=== PATIENT | male | born 1985 | race Caucasian/White ===

== ENCOUNTER 2023-06-06 12:20 | Inpatient (IN) | payer OTHER ==
[2023-06-06 14:38] VITALS: BMI 28.3
[2023-06-06] MEDS ORDERED: LORazepam 2 MG/ML SDV VIAL IM ONE (16:50)
[2023-06-06] MEDS ORDERED: guaiFENesin 600 MG TABLET.ER (FP) PO PRN (16:53)
[2023-06-06] MEDS ORDERED: MAGNESIUM HYDROX 2400MG/30ML ORAL SUSPENSION 30 ML CUP PO PRN (16:53)
[2023-06-06] MEDS ORDERED: BENZOCAINE/MENTHOL (CHLORASEPTIC ) LOZENGE MM PRN (16:53)
[2023-06-06] MEDS ORDERED: DICYCLOMINE HCL 10 MG CAPSULE PO PRN (16:53)
[2023-06-06] MEDS ORDERED: LOPERAMIDE HCL 2 MG CAPSULE PO PRN (16:53)
[2023-06-06] MEDS ORDERED: NALOXONE HCL (KLOXXADO) 8 MG SPRAY NS PRN (16:53)
[2023-06-06] MEDS ORDERED: ACETAMINOPHEN 325 MG TABLET (FP) PO PRN (16:53)
[2023-06-06] MEDS ORDERED: POLYETHYLENE GLYCOL (HEALTHYLAX) 3350 17 GM PACKET PO PRN (16:53)
[2023-06-06] MEDS ORDERED: MAG HYDROX/AL HYDROX/SIMETH 30 ML UNIT-DOSE CUP PO PRN (16:53)
[2023-06-06] MEDS ORDERED: BENZONATATE 200 MG CAPSULE PO PRN (16:53)
[2023-06-06] MEDS ORDERED: IBUPROFEN 400 MG TABLET (FP) PO PRN (16:53)
[2023-06-06] MEDS ORDERED: NICOTINE POLACRILEX 2 MG GUM BUC PRN (16:53)
[2023-06-06] MEDS ORDERED: IBUPROFEN 600 MG TABLET (FP) PO PRN (16:53)
[2023-06-06] MEDS ORDERED: NALOXONE HCL 0.4 MG/ML VIAL IM PRN (16:53)
[2023-06-06] MEDS ORDERED: ONDANSETRON *ODT* 4 MG TABLET SL PRN (16:53)
[2023-06-06] MEDS ORDERED: BISMUTH SUBSALICYLATE 524 MG/30 ML PO PRN (16:53)
[2023-06-06] MEDS: hydrOXYzine PAMOATE 25 MG CAPSULE (FP) PO PRN (18:50)
[2023-06-06] MEDS: THIAMINE HCL 100 MG TABLET (FP) PO SCH (22:07)
[2023-06-06] MEDS: METHOCARBAMOL 500 MG TABLET PO PRN (22:07)
[2023-06-06] MEDS: MELATONIN 5 MG TABLETS PO SCH (22:07)
[2023-06-06] MEDS: LORazepam 2 MG TABLET PO SCH (22:07)
[2023-06-07] MEDS: LORazepam 2 MG TABLET PO SCH ×4 (05:20→22:39)
[2023-06-07] MEDS: hydrOXYzine PAMOATE 25 MG CAPSULE (FP) PO PRN ×2 (05:22→19:01)
[2023-06-07] MEDS ORDERED: methaDONE HCL 10 MG TABLET PO SCH (10:00)
[2023-06-07] MEDS: NICOTINE 14 MG/24 HOURS TOPICAL PATCH TD SCH (10:27)
[2023-06-07] MEDS: PRENATAL VITAMINS W/ FOLIC ACID TABLET (FP) PO SCH (10:27)
[2023-06-07] MEDS: LORazepam 1 MG TABLET PO PRN ×2 (13:57→20:20)
[2023-06-07] MEDS: THIAMINE HCL 100 MG TABLET (FP) PO SCH (22:39)
[2023-06-07] MEDS: MELATONIN 5 MG TABLETS PO SCH (22:39)
[2023-06-07] MEDS: busPIRone HCL 5 MG TABLET PO SCH (22:39)
[2023-06-08] MEDS: busPIRone HCL 5 MG TABLET PO SCH ×3 (05:18→22:03)
[2023-06-08] MEDS: LORazepam 1 MG TABLET PO SCH ×4 (05:19→22:04)
[2023-06-08] MEDS: DULoxetine HCL 20 MG CAPSULE.DR PO SCH (10:00)
[2023-06-08] MEDS: PRENATAL VITAMINS W/ FOLIC ACID TABLET (FP) PO SCH (10:01)
[2023-06-08] MEDS: NICOTINE 14 MG/24 HOURS TOPICAL PATCH TD SCH (10:02)
[2023-06-08] MEDS: hydrOXYzine PAMOATE 25 MG CAPSULE (FP) PO PRN (14:09)
[2023-06-08] MEDS: LORazepam 1 MG TABLET PO PRN (14:09)
[2023-06-08] MEDS: THIAMINE HCL 100 MG TABLET (FP) PO SCH (22:03)
[2023-06-08] MEDS: MELATONIN 5 MG TABLETS PO SCH (22:03)
[2023-06-09] MEDS: LORazepam 0.5 MG TABLET PO SCH ×4 (05:36→23:12)
[2023-06-09] MEDS: busPIRone HCL 5 MG TABLET PO SCH ×3 (05:36→22:08)
[2023-06-09] MEDS: NICOTINE 14 MG/24 HOURS TOPICAL PATCH TD SCH (10:27)
[2023-06-09] MEDS: PRENATAL VITAMINS W/ FOLIC ACID TABLET (FP) PO SCH (10:27)
[2023-06-09] MEDS: DULoxetine HCL 20 MG CAPSULE.DR PO SCH (10:27)
[2023-06-09] MEDS: hydrOXYzine PAMOATE 25 MG CAPSULE (FP) PO PRN (10:27)
[2023-06-09 11:06] LABS: HEMATOCRIT 39.2 % (35.4-49); HEMOGLOBIN 13.4 GM/dL (11.7-16.9); MCH 31.1 pg (25.7-33.7); MCHC 34.2 g/dl (32.0-35.9); MEAN CELL VOLUME 90.9 fl (80-96); MEAN PLT VOLUME 9.7 fl (7.5-11.1); PLATELET COUNT 230 10^3/uL (134-434); RBC 4.32 M/mm3 (4.00-5.60); RDW 13.7 % (11.9-15.9); WHITE BLOOD COUNT 5.8 K/mm3 (4.0-10.0)
[2023-06-09 11:17] LABS: POTASSIUM 4.6 mmol/L (3.5-5.1)
[2023-06-09 11:20] LABS: CALCIUM 9.4 mg/dL (8.5-10.1)
[2023-06-09 11:21] LABS: ALBUMIN 3.5 g/dl (3.4-5.0); BLOOD UREA NITROGEN 10.6 mg/dL (7-18)
[2023-06-09 11:24] LABS: CREATININE 0.7 mg/dL (0.55-1.3)
[2023-06-09 11:26] LABS: BILIRUBIN,TOTAL 0.3 mg/dL (0.2-1); TOT PROT 6.9 g/dl (6.4-8.2)
[2023-06-09] MEDS: LORazepam 0.5 MG TABLET PO PRN ×2 (13:23→20:36)
[2023-06-09] MEDS: THIAMINE HCL 100 MG TABLET (FP) PO SCH (22:08)
[2023-06-09] MEDS: MELATONIN 5 MG TABLETS PO SCH (22:08)
[2023-06-10] MEDS ORDERED: LORazepam 0.5 MG TABLET PO ONE (05:00)
[2023-06-10] MEDS: busPIRone HCL 5 MG TABLET PO SCH (05:24)
[2023-06-10] MEDS: hydrOXYzine PAMOATE 25 MG CAPSULE (FP) PO PRN (05:27)
[2023-06-10 09:33] VITALS: BP 124/97; PULSE 63; RESP 18; TEMP 97.1
[2023-06-10] MEDS: PRENATAL VITAMINS W/ FOLIC ACID TABLET (FP) PO SCH (10:06)
[2023-06-10] MEDS: DULoxetine HCL 20 MG CAPSULE.DR PO SCH (10:06)
[2023-06-10] MEDS: METHOCARBAMOL 500 MG TABLET PO PRN (10:08)
[2023-06-10] MEDS: NICOTINE 14 MG/24 HOURS TOPICAL PATCH TD SCH (10:37)
[2023-06-10] MEDS ORDERED: LACTULOSE 20 GM/30 ML UDC (FOR ORAL USE ONLY) PO SCH (14:00)
== END 2023-06-10 11:01 | disposition home or self-care (01) | DRG 773 ==
LOC: YASAS 12:20 → Y6N 18:04
PROVIDERS: ADMIT Allergy & Immunology; ATTEND Allergy & Immunology
PROC: HZ2ZZZZ Detoxification Services for Substance Abuse Treatment (ICD-10-PCS; principal; 2023-06-06)
DX: F10.230 Alcohol dependence with withdrawal, uncomplicated (principal); F11.20 Opioid dependence, uncomplicated; F17.210 Nicotine dependence, cigarettes, uncomplicated; F32.A Depression, unspecified; F19.94 Other psychoactive substance use, unspecified with psychoactive substance-induced mood disorder; I10 Essential (primary) hypertension; E72.20 Disorder of urea cycle metabolism, unspecified; M54.50 Low back pain, unspecified; G89.29 Other chronic pain; G47.00 Insomnia, unspecified; M19.90 Unspecified osteoarthritis, unspecified site; R00.0 Tachycardia, unspecified; Z28.310 Unvaccinated for COVID-19; Z86.69 Personal history of other diseases of the nervous system and sense organs; Z86.59 Personal history of other mental and behavioral disorders; Z91.013 Allergy to seafood; Z56.0 Unemployment, unspecified
CPT/HCPCS: 36415; 73630-TC-RT-FY; 80053; 82140; 85027; 86780; 87635; 87811

== ENCOUNTER 2023-11-10 10:33 | Inpatient (IN) | payer OTHER ==
[2023-11-10 12:07] VITALS: BMI 30.9
[2023-11-10] MEDS ORDERED: NALOXONE HCL (KLOXXADO) 8 MG SPRAY NS PRN (12:55)
[2023-11-10] MEDS ORDERED: MAGNESIUM HYDROX 2400MG/30ML ORAL SUSPENSION 30 ML CUP PO PRN (12:55)
[2023-11-10] MEDS ORDERED: BENZONATATE 200 MG CAPSULE PO PRN (12:55)
[2023-11-10] MEDS ORDERED: BISMUTH SUBSALICYLATE 262 MG/15 ML BTL PO PRN (12:55)
[2023-11-10] MEDS ORDERED: guaiFENesin 600 MG TABLET.ER (FP) PO PRN (12:55)
[2023-11-10] MEDS ORDERED: ACETAMINOPHEN 325 MG TABLET (FP) PO PRN (12:55)
[2023-11-10] MEDS ORDERED: POLYETHYLENE GLYCOL (HEALTHYLAX) 3350 17 GM PACKET PO PRN (12:55)
[2023-11-10] MEDS ORDERED: NALOXONE HCL 0.4 MG/ML VIAL IM PRN (12:55)
[2023-11-10] MEDS ORDERED: ONDANSETRON *ODT* 4 MG TABLET SL PRN (12:55)
[2023-11-10] MEDS ORDERED: IBUPROFEN 400 MG TABLET (FP) PO PRN (12:55)
[2023-11-10] MEDS ORDERED: BENZOCAINE/MENTHOL (CHLORASEPTIC ) LOZENGE MM PRN (12:55)
[2023-11-10] MEDS ORDERED: LOPERAMIDE HCL 2 MG CAPSULE PO PRN (12:55)
[2023-11-10] MEDS ORDERED: MAG HYDROX/AL HYDROX/SIMETH 30 ML UNIT-DOSE CUP PO PRN (12:55)
[2023-11-10] MEDS ORDERED: cloNIDine HCL 0.1 MG TABLET PO ONE (12:59)
[2023-11-10] MEDS ORDERED: cloNIDine HCL 0.1 MG TABLET ONE (13:44)
[2023-11-10] MEDS ORDERED: LORazepam 1 MG TABLET ONE (13:45)
[2023-11-10] MEDS: LORazepam 1 MG TABLET PO PRN ×2 (13:52→20:11)
[2023-11-10] MEDS: LORazepam 2 MG TABLET PO SCH ×2 (17:18→22:27)
[2023-11-10] MEDS: hydrOXYzine PAMOATE 25 MG CAPSULE (FP) PO PRN ×2 (17:19→22:27)
[2023-11-10] MEDS: METHOCARBAMOL 500 MG TABLET PO PRN (17:19)
[2023-11-10] MEDS: NICOTINE POLACRILEX 2 MG GUM BUC PRN ×2 (17:27→22:30)
[2023-11-10] MEDS: THIAMINE HCL 100 MG TABLET (FP) PO SCH (22:27)
[2023-11-10] MEDS: MELATONIN 5 MG TABLETS PO SCH (22:27)
[2023-11-11] MEDS: LORazepam 2 MG TABLET PO SCH ×4 (05:55→22:13)
[2023-11-11] MEDS ORDERED: methaDONE HCL 10 MG TABLET PO ONE (10:00)
[2023-11-11] MEDS: PRENATAL VITAMINS W/ FOLIC ACID TABLET (FP) PO SCH (10:04)
[2023-11-11] MEDS: NICOTINE 21 MG/24 HOURS TOPICAL PATCH TD SCH (10:08)
[2023-11-11] MEDS: NICOTINE POLACRILEX 2 MG GUM BUC PRN ×3 (14:40→22:15)
[2023-11-11 14:54] LABS: CHLORIDE 103 mmol/L (98-107); POTASSIUM 4.6 mmol/L (3.5-5.1); SODIUM 132 mmol/L (136-145)
[2023-11-11 14:55] LABS: HEMATOCRIT 38.9 % (35.4-49); HEMOGLOBIN 13.1 GM/dL (11.7-16.9); MCH 29.8 pg (25.7-33.7); MCHC 33.7 g/dl (32.0-35.9); MEAN CELL VOLUME 88.4 fl (80-96); MEAN PLT VOLUME 9.3 fl (7.5-11.1); PLATELET COUNT 324 10^3/uL (134-434); RBC 4.39 M/mm3 (4.00-5.60); RDW 12.7 % (11.9-15.9)
[2023-11-11 15:00] LABS: ALBUMIN 3.6 g/dl (3.4-5.0); ANION GAP 5 mmol/L (4-13); BLOOD UREA NITROGEN 14.1 mg/dL (7-18); CALCIUM 9.4 mg/dL (8.5-10.1); CO2 24 mmol/L (21-32)
[2023-11-11 15:01] LABS: GLUCOSE,RANDOM 110 mg/dL (74-106)
[2023-11-11 15:03] LABS: SGPT/ALT 62 U/L (13-61)
[2023-11-11 15:04] LABS: CREATININE 0.8 mg/dL (0.55-1.3); SGOT/AST 33 U/L (15-37)
[2023-11-11 15:05] LABS: BILIRUBIN,TOTAL 0.2 mg/dL (0.2-1); TOT PROT 7.3 g/dl (6.4-8.2)
[2023-11-11 15:06] LABS: ALK PHOS 106 U/L (45-117)
[2023-11-11] MEDS: hydrOXYzine PAMOATE 25 MG CAPSULE (FP) PO PRN (17:10)
[2023-11-11] MEDS: IBUPROFEN 600 MG TABLET (FP) PO PRN (17:10)
[2023-11-11] MEDS: LORazepam 1 MG TABLET PO PRN (19:56)
[2023-11-11] MEDS: THIAMINE HCL 100 MG TABLET (FP) PO SCH (22:12)
[2023-11-11] MEDS: METHOCARBAMOL 500 MG TABLET PO PRN (22:12)
[2023-11-11] MEDS: MELATONIN 5 MG TABLETS PO SCH (22:13)
[2023-11-12] MEDS: LORazepam 1 MG TABLET PO SCH ×4 (05:52→22:33)
[2023-11-12] MEDS: NICOTINE POLACRILEX 2 MG GUM BUC PRN ×5 (05:56→22:36)
[2023-11-12] MEDS ORDERED: methaDONE HCL 10 MG TABLET PO SCH (06:00)
[2023-11-12] MEDS: NICOTINE 21 MG/24 HOURS TOPICAL PATCH TD SCH (10:23)
[2023-11-12] MEDS: IBUPROFEN 600 MG TABLET (FP) PO PRN (10:24)
[2023-11-12] MEDS: PRENATAL VITAMINS W/ FOLIC ACID TABLET (FP) PO SCH (10:25)
[2023-11-12] MEDS: LORazepam 1 MG TABLET PO PRN ×2 (13:22→20:27)
[2023-11-12] MEDS: hydrOXYzine PAMOATE 25 MG CAPSULE (FP) PO PRN (17:28)
[2023-11-12] MEDS: THIAMINE HCL 100 MG TABLET (FP) PO SCH (22:33)
[2023-11-12] MEDS: MELATONIN 5 MG TABLETS PO SCH (22:33)
[2023-11-12] MEDS: METHOCARBAMOL 500 MG TABLET PO PRN (22:33)
[2023-11-13] MEDS ORDERED: LORazepam 0.5 MG TABLET PO PRN
[2023-11-13] MEDS: LORazepam 0.5 MG TABLET PO SCH ×4 (05:52→22:16)
[2023-11-13] MEDS: NICOTINE POLACRILEX 2 MG GUM BUC PRN ×4 (05:56→22:17)
[2023-11-13] MEDS: PRENATAL VITAMINS W/ FOLIC ACID TABLET (FP) PO SCH (10:13)
[2023-11-13] MEDS: hydrOXYzine PAMOATE 25 MG CAPSULE (FP) PO PRN ×2 (10:13→17:10)
[2023-11-13] MEDS: METHOCARBAMOL 500 MG TABLET PO PRN ×2 (10:13→22:16)
[2023-11-13] MEDS: NICOTINE 21 MG/24 HOURS TOPICAL PATCH TD SCH (10:16)
[2023-11-13 12:49] VITALS: RESP 18
[2023-11-13] MEDS: MELATONIN 5 MG TABLETS PO SCH (22:15)
[2023-11-13] MEDS: THIAMINE HCL 100 MG TABLET (FP) PO SCH (22:15)
[2023-11-14] MEDS ORDERED: LORazepam 0.5 MG TABLET PO ONE (05:00)
[2023-11-14] MEDS: NICOTINE POLACRILEX 2 MG GUM BUC PRN ×2 (05:58→10:56)
[2023-11-14] MEDS: PRENATAL VITAMINS W/ FOLIC ACID TABLET (FP) PO SCH (09:21)
[2023-11-14] MEDS: NICOTINE 21 MG/24 HOURS TOPICAL PATCH TD SCH (09:21)
[2023-11-14 09:50] VITALS: BP 113/78; PULSE 98; TEMP 98
== END 2023-11-14 10:57 | disposition home or self-care (01) | DRG 773 ==
LOC: YASAS 10:33 → Y6N 13:55
PROVIDERS: ADMIT Allergy & Immunology; ATTEND Surgery
PROC: HZ2ZZZZ Detoxification Services for Substance Abuse Treatment (ICD-10-PCS; principal; 2023-11-10)
DX: F10.230 Alcohol dependence with withdrawal, uncomplicated (principal); F11.20 Opioid dependence, uncomplicated; F17.210 Nicotine dependence, cigarettes, uncomplicated; F41.8 Other specified anxiety disorders; I10 Essential (primary) hypertension; R79.89 Other specified abnormal findings of blood chemistry; Z28.310 Unvaccinated for COVID-19; Z28.9 Immunization not carried out for unspecified reason
CPT/HCPCS: 36415; 80053; 80307; 85027; 86780; 87635; 87811; 93005; 93010

== ENCOUNTER 2024-08-06 15:04 | Inpatient (IN) | payer OTHER ==
[2024-08-06 15:50] VITALS: BMI 30.3
[2024-08-06] MEDS ORDERED: chlordiazePOXIDE HCL 25 MG CAPSULE ONE (16:47)
[2024-08-06] MEDS ORDERED: METOPROLOL TARTRATE 25 MG TABLET (FP) ONE (16:48)
[2024-08-06] MEDS: METOPROLOL TARTRATE 25 MG TABLET (FP) PO ONE (16:50)
[2024-08-06] MEDS: chlordiazePOXIDE HCL 25 MG CAPSULE PO SCH (16:53)
[2024-08-06] MEDS ORDERED: guaiFENesin 600 MG TABLET.ER (FP) PO PRN (17:10)
[2024-08-06] MEDS ORDERED: MAGNESIUM HYDROX 2400MG/30ML ORAL SUSPENSION 30 ML CUP PO PRN (17:10)
[2024-08-06] MEDS ORDERED: BENZOCAINE/MENTHOL (CHLORASEPTIC ) LOZENGE MM PRN (17:10)
[2024-08-06] MEDS ORDERED: ONDANSETRON *ODT* 4 MG TABLET SL PRN (17:10)
[2024-08-06] MEDS ORDERED: NALOXONE (NARCAN) HCL 4 MG/0.1 ML SPRAY NS PRN (17:10)
[2024-08-06] MEDS ORDERED: BISMUTH SUBSALICYLATE 524 MG/30 ML PO PRN (17:10)
[2024-08-06] MEDS ORDERED: DICYCLOMINE HCL 10 MG CAPSULE PO PRN (17:10)
[2024-08-06] MEDS ORDERED: BENZONATATE 200 MG CAPSULE PO PRN (17:10)
[2024-08-06] MEDS ORDERED: ACETAMINOPHEN 325 MG TABLET (FP) PO PRN (17:10)
[2024-08-06] MEDS ORDERED: IBUPROFEN 400 MG TABLET (FP) PO PRN (17:10)
[2024-08-06] MEDS ORDERED: MAG HYDROX/AL HYDROX/SIMETH 30 ML UNIT-DOSE CUP PO PRN (17:10)
[2024-08-06] MEDS ORDERED: POLYETHYLENE GLYCOL (HEALTHYLAX) 3350 17 GM PACKET PO PRN (17:10)
[2024-08-06] MEDS: NICOTINE POLACRILEX 2 MG GUM BUC PRN (17:43)
[2024-08-06] MEDS: IBUPROFEN 600 MG TABLET (FP) PO PRN (17:43)
[2024-08-06] MEDS: MELATONIN 5 MG TABLETS PO SCH (22:12)
[2024-08-06] MEDS: THIAMINE 100 MG TABLET PO SCH (22:14)
[2024-08-06] MEDS: levETIRAcetam 500 MG TABLET (FP) PO SCH (22:15)
[2024-08-06] MEDS: METHOCARBAMOL 500 MG TABLET PO PRN (22:15)
[2024-08-07] MEDS ORDERED: methaDONE HCL 10 MG TABLET PO SCH (10:15)
[2024-08-07] MEDS: PRENATAL VITAMINS W/ FOLIC ACID TABLET (FP) PO SCH (10:19)
[2024-08-07] MEDS: methaDONE 40 MG, methaDONE 10 MG PO SCH (10:19)
[2024-08-07] MEDS: LOPERAMIDE HCL 2 MG CAPSULE PO PRN (11:19)
[2024-08-07 11:22] LABS: HEMATOCRIT 36.7 % (35.4-49); HEMOGLOBIN 12.7 GM/dL (11.7-16.9); MCHC 34.6 g/dl (32.0-35.9); MEAN CELL VOLUME 86.9 fl (80-96); MEAN PLT VOLUME 9.1 fl (7.5-11.1); PLATELET COUNT 275 10^3/uL (134-434); RBC 4.23 M/mm3 (4.00-5.60); RDW 12.5 % (11.9-15.9); WHITE BLOOD COUNT 5.8 K/mm3 (4.0-10.0)
[2024-08-07] MEDS: DULoxetine HCL 20 MG CAPSULE.DR PO SCH (12:10)
[2024-08-07 14:47] LABS: CHLORIDE 107 mmol/L (98-107); POTASSIUM 4.1 mmol/L (3.5-5.1); SODIUM 139 mmol/L (136-145)
[2024-08-07 14:49] LABS: CALCIUM 8.8 mg/dL (8.5-10.1)
[2024-08-07 14:50] LABS: ALBUMIN 3.3 g/dl (3.4-5.0); ANION GAP 6 mmol/L (4-13); CO2 26 mmol/L (21-32)
[2024-08-07 14:53] LABS: BLOOD UREA NITROGEN 12.8 mg/dL (7-18); CREATININE 0.8 mg/dL (0.55-1.3); GLUCOSE,RANDOM 122 mg/dL (74-106); SGOT/AST 28 U/L (15-37); SGPT/ALT 49 U/L (13-61)
[2024-08-07 14:54] LABS: BILIRUBIN,TOTAL 0.2 mg/dL (0.2-1)
[2024-08-07 14:55] LABS: TOT PROT 6.1 g/dl (6.4-8.2)
[2024-08-07 14:56] LABS: ALK PHOS 94 U/L (45-117)
[2024-08-07] MEDS: chlordiazePOXIDE HCL 25 MG CAPSULE PO PRN (15:06)
[2024-08-07] MEDS: MELATONIN 5 MG TABLETS PO SCH (22:24)
[2024-08-08] MEDS: chlordiazePOXIDE HCL 25 MG CAPSULE PO SCH (05:35)
[2024-08-09] MEDS: chlordiazePOXIDE HCL 10 MG CAPSULE PO SCH (05:41)
[2024-08-09] MEDS: chlordiazePOXIDE HCL 10 MG CAPSULE PO PRN (19:24)
[2024-08-09] MEDS: NICOTINE POLACRILEX 2 MG LOZENGE BC PRN (19:26)
[2024-08-10] MEDS: chlordiazePOXIDE HCL 10 MG CAPSULE PO SCH (05:55)
[2024-08-10 20:55] VITALS: RESP 18
[2024-08-11] MEDS: chlordiazePOXIDE HCL 10 MG CAPSULE PO ONE (05:41)
[2024-08-11 08:59] VITALS: BP 128/94; PULSE 108; TEMP 97.7
[2024-08-11] MEDS: NALOXONE (NYS OPIOID OVERDOSE PROGRAM) 4 MG/0.1 ML SPRAY NS PRN (09:20)
== END 2024-08-11 09:42 | disposition home or self-care (01) | DRG 773 ==
LOC: YASAS 15:04 → Y6N 16:49
PROVIDERS: ADMIT Allergy & Immunology; ATTEND Surgery
PROC: HZ2ZZZZ Detoxification Services for Substance Abuse Treatment (ICD-10-PCS; principal; 2024-08-06)
DX: F10.230 Alcohol dependence with withdrawal, uncomplicated (principal); F11.20 Opioid dependence, uncomplicated; F17.210 Nicotine dependence, cigarettes, uncomplicated; F19.282 Other psychoactive substance dependence with psychoactive substance-induced sleep disorder; F19.280 Other psychoactive substance dependence with psychoactive substance-induced anxiety disorder; F33.1 Major depressive disorder, recurrent, moderate; F90.9 Attention-deficit hyperactivity disorder, unspecified type; M54.50 Low back pain, unspecified; G89.29 Other chronic pain; R73.9 Hyperglycemia, unspecified; Z62.810 Personal history of physical and sexual abuse in childhood; Z91.410 Personal history of adult physical and sexual abuse; Z63.8 Other specified problems related to primary support group
CPT/HCPCS: 36415; 80053; 80305; 80307; 85027; 86780

== ENCOUNTER 2024-08-17 15:04 | Inpatient (IN) | payer OTHER ==
[2024-08-17 16:48] VITALS: BMI 31.8
[2024-08-17] MEDS ORDERED: BENZONATATE 200 MG CAPSULE PO PRN (17:32)
[2024-08-17] MEDS ORDERED: MAGNESIUM HYDROX 2400MG/30ML ORAL SUSPENSION 30 ML CUP PO PRN (17:32)
[2024-08-17] MEDS ORDERED: ACETAMINOPHEN 325 MG TABLET (FP) PO PRN (17:32)
[2024-08-17] MEDS ORDERED: MAG HYDROX/AL HYDROX/SIMETH 30 ML UNIT-DOSE CUP PO PRN (17:32)
[2024-08-17] MEDS ORDERED: POLYETHYLENE GLYCOL (HEALTHYLAX) 3350 17 GM PACKET PO PRN (17:32)
[2024-08-17] MEDS ORDERED: BENZOCAINE/MENTHOL (CHLORASEPTIC ) LOZENGE MM PRN (17:32)
[2024-08-17] MEDS ORDERED: NALOXONE (NYS OPIOID OVERDOSE PROGRAM) 4 MG/0.1 ML SPRAY NS PRN (17:32)
[2024-08-17] MEDS ORDERED: NALOXONE (NARCAN) HCL 4 MG/0.1 ML SPRAY NS PRN (17:32)
[2024-08-17] MEDS ORDERED: ONDANSETRON *ODT* 4 MG TABLET SL PRN (17:32)
[2024-08-17] MEDS ORDERED: guaiFENesin 600 MG TABLET.ER (FP) PO PRN (17:32)
[2024-08-17] MEDS ORDERED: BISMUTH SUBSALICYLATE 524 MG/30 ML PO PRN (17:32)
[2024-08-17] MEDS ORDERED: IBUPROFEN 600 MG TABLET (FP) PO PRN (17:32)
[2024-08-17] MEDS ORDERED: DICYCLOMINE HCL 10 MG CAPSULE PO PRN (17:32)
[2024-08-17] MEDS ORDERED: LOPERAMIDE HCL 2 MG CAPSULE PO PRN (17:32)
[2024-08-17] MEDS: THIAMINE 100 MG TABLET PO SCH (22:26)
[2024-08-17] MEDS: MELATONIN 5 MG TABLETS PO SCH (22:26)
[2024-08-17] MEDS: hydrOXYzine PAMOATE 25 MG CAPSULE (FP) PO PRN (23:50)
[2024-08-17] MEDS: METHOCARBAMOL 500 MG TABLET PO PRN (23:51)
[2024-08-18] MEDS ORDERED: chlordiazePOXIDE HCL 25 MG CAPSULE PO PRN (08:25)
[2024-08-18] MEDS ORDERED: methaDONE HCL 10 MG TABLET PO SCH (08:30)
[2024-08-18] MEDS: PRENATAL VITAMINS W/ FOLIC ACID TABLET (FP) PO SCH (09:35)
[2024-08-18] MEDS: methaDONE 40 MG, methaDONE 20 MG PO SCH (09:36)
[2024-08-18] MEDS: cloNIDine HCL 0.1 MG TABLET PO SCH (09:38)
[2024-08-18] MEDS: methaDONE HCL 10 MG TABLET PO ONE ×2 (09:44→10:10)
[2024-08-18] MEDS ORDERED: levETIRAcetam 500 MG TABLET (FP) PO SCH (10:00)
[2024-08-18] MEDS: chlordiazePOXIDE HCL 25 MG CAPSULE PO SCH (10:10)
[2024-08-18] MEDS: DULoxetine HCL 20 MG CAPSULE.DR PO SCH (11:22)
[2024-08-18] MEDS: NICOTINE 21 MG/24 HOURS TOPICAL PATCH TD SCH (14:06)
[2024-08-18] MEDS: MELATONIN 5 MG TABLETS PO SCH (22:10)
[2024-08-19] MEDS: methaDONE HCL 10 MG TABLET PO ONE (10:19)
[2024-08-20] MEDS: chlordiazePOXIDE HCL 25 MG CAPSULE PO SCH (05:29)
[2024-08-20] MEDS: methaDONE HCL 10 MG TABLET PO ONE (10:09)
[2024-08-20 17:43] LABS: HEMATOCRIT 42.1 % (35.4-49); HEMOGLOBIN 14.3 GM/dL (11.7-16.9); MCH 30.4 pg (25.7-33.7); MCHC 34.1 g/dl (32.0-35.9); MEAN CELL VOLUME 89.1 fl (80-96); MEAN PLT VOLUME 9.6 fl (7.5-11.1); PLATELET COUNT 288 10^3/uL (134-434); RBC 4.72 M/mm3 (4.00-5.60); RDW 12.6 % (11.9-15.9); WHITE BLOOD COUNT 5.9 K/mm3 (4.0-10.0)
[2024-08-20 17:47] LABS: ALBUMIN 3.7 g/dl (3.4-5.0); CALCIUM 9.4 mg/dL (8.5-10.1)
[2024-08-20 17:50] LABS: CREATININE 0.7 mg/dL (0.55-1.3)
[2024-08-20 17:51] LABS: BILIRUBIN,TOTAL 0.2 mg/dL (0.2-1); TOT PROT 7.3 g/dl (6.4-8.2)
[2024-08-20 18:42] LABS: ANISOCYTOSIS 2+; MACROCYTOSIS 0
[2024-08-20] MEDS: cloNIDine HCL 0.1 MG TABLET PO PRN (22:26)
[2024-08-21] MEDS: chlordiazePOXIDE HCL 10 MG CAPSULE PO SCH (05:35)
[2024-08-21] MEDS: methaDONE HCL 40 MG DISPERSABLE TABLET PO ONE (10:08)
[2024-08-21] MEDS: chlordiazePOXIDE HCL 10 MG CAPSULE PO PRN (14:17)
[2024-08-22] MEDS: chlordiazePOXIDE HCL 10 MG CAPSULE PO SCH (05:31)
[2024-08-22] MEDS: methaDONE 40 MG, methaDONE 10 MG PO ONE (09:59)
[2024-08-23] MEDS: chlordiazePOXIDE HCL 10 MG CAPSULE PO ONE (05:37)
[2024-08-23] MEDS: IBUPROFEN 400 MG TABLET (FP) PO PRN (07:23)
[2024-08-23] MEDS: methaDONE 40 MG, methaDONE 20 MG PO ONE (10:31)
[2024-08-23 11:31] VITALS: BP 100/67; PULSE 90; RESP 18; TEMP 97.7
== END 2024-08-23 11:00 | disposition home or self-care (01) | DRG 773 ==
LOC: YASAS 15:04 → Y3N 18:11
PROVIDERS: ADMIT Allergy & Immunology; ATTEND Surgery
PROC: HZ2ZZZZ Detoxification Services for Substance Abuse Treatment (ICD-10-PCS; principal; 2024-08-17)
DX: F11.23 Opioid dependence with withdrawal (principal); F10.230 Alcohol dependence with withdrawal, uncomplicated; F17.210 Nicotine dependence, cigarettes, uncomplicated; F33.1 Major depressive disorder, recurrent, moderate; F19.282 Other psychoactive substance dependence with psychoactive substance-induced sleep disorder; F19.280 Other psychoactive substance dependence with psychoactive substance-induced anxiety disorder; F19.24 Other psychoactive substance dependence with psychoactive substance-induced mood disorder; F90.9 Attention-deficit hyperactivity disorder, unspecified type; F41.9 Anxiety disorder, unspecified; G40.89 Other seizures; I10 Essential (primary) hypertension
CPT/HCPCS: 36415; 80053; 80305; 80307; 83036; 85025; 86780

== ENCOUNTER 2024-11-02 08:25 | Inpatient (IN) | payer OTHER ==
[2024-11-02 08:44] VITALS: BMI 29.8
[2024-11-02] MEDS ORDERED: ONDANSETRON *ODT* 4 MG TABLET SL PRN (09:39)
[2024-11-02] MEDS ORDERED: LOPERAMIDE HCL 2 MG CAPSULE PO PRN (09:39)
[2024-11-02] MEDS ORDERED: BISMUTH SUBSALICYLATE 262 MG/15 ML BTL PO PRN (09:39)
[2024-11-02] MEDS ORDERED: POLYETHYLENE GLYCOL (HEALTHYLAX) 3350 17 GM PACKET PO PRN (09:39)
[2024-11-02] MEDS ORDERED: BENZOCAINE/MENTHOL (CHLORASEPTIC ) LOZENGE MM PRN (09:39)
[2024-11-02] MEDS ORDERED: IBUPROFEN 400 MG TABLET (FP) PO PRN (09:39)
[2024-11-02] MEDS ORDERED: DICYCLOMINE HCL 10 MG CAPSULE PO PRN (09:39)
[2024-11-02] MEDS ORDERED: IBUPROFEN 600 MG TABLET (FP) PO PRN (09:39)
[2024-11-02] MEDS ORDERED: BENZONATATE 200 MG CAPSULE PO PRN (09:39)
[2024-11-02] MEDS ORDERED: MAGNESIUM HYDROX 2400MG/30ML ORAL SUSPENSION 30 ML CUP PO PRN (09:39)
[2024-11-02] MEDS ORDERED: NALOXONE (NARCAN) HCL 4 MG/0.1 ML SPRAY NS PRN (09:39)
[2024-11-02] MEDS ORDERED: guaiFENesin 600 MG TABLET.ER (FP) PO PRN (09:39)
[2024-11-02] MEDS ORDERED: ACETAMINOPHEN 325 MG TABLET (FP) PO PRN (09:39)
[2024-11-02] MEDS ORDERED: chlordiazePOXIDE HCL 25 MG CAPSULE PO PRN (09:41)
[2024-11-02] MEDS ORDERED: chlordiazePOXIDE HCL 25 MG CAPSULE ONE (10:06)
[2024-11-02] MEDS ORDERED: PRENATAL VITAMINS W/ FOLIC ACID TABLET (FP) PO ONE (10:07)
[2024-11-02] MEDS: chlordiazePOXIDE HCL 25 MG CAPSULE PO SCH (10:08)
[2024-11-02] MEDS: PRENATAL VITAMINS W/ FOLIC ACID TABLET (FP) PO SCH (10:10)
[2024-11-02] MEDS: NICOTINE 14 MG/24 HOURS TOPICAL PATCH TD SCH (10:48)
[2024-11-02] MEDS: levETIRAcetam 500 MG TABLET (FP) PO SCH (12:16)
[2024-11-02] MEDS: NICOTINE POLACRILEX 2 MG GUM BUC PRN (13:09)
[2024-11-02] MEDS: MELATONIN 5 MG TABLETS PO SCH (22:08)
[2024-11-02] MEDS: METHOCARBAMOL 500 MG TABLET PO PRN (22:08)
[2024-11-02] MEDS: THIAMINE 100 MG TABLET PO SCH (22:08)
[2024-11-03] MEDS: methaDONE 40 MG, methaDONE 30 MG PO SCH (05:21)
[2024-11-03] MEDS ORDERED: methaDONE HCL 40 MG DISPERSABLE TABLET PO SCH (06:00)
[2024-11-03] MEDS: DULoxetine HCL 20 MG CAPSULE.DR PO SCH (09:36)
[2024-11-03] MEDS: hydrOXYzine PAMOATE 25 MG CAPSULE (FP) PO PRN (09:36)
[2024-11-03] MEDS: MAG HYDROX/AL HYDROX/SIMETH 30 ML UNIT-DOSE CUP PO PRN (10:29)
[2024-11-03 10:36] LABS: HEMATOCRIT 39.2 % (35.4-49); MCH 29.4 pg (25.7-33.7); MCHC 33.1 g/dl (32.0-35.9); MEAN CELL VOLUME 88.9 fl (80-96); MEAN PLT VOLUME 9.5 fl (7.5-11.1); PLATELET COUNT 293 10^3/uL (134-434); RDW 12.9 % (11.9-15.9); WHITE BLOOD COUNT 5.7 K/mm3 (4.0-10.0)
[2024-11-03 10:38] LABS: CHLORIDE 105 mmol/L (98-107); POTASSIUM 4.4 mmol/L (3.5-5.1); SODIUM 136 mmol/L (136-145)
[2024-11-03 10:45] LABS: CALCIUM 9.4 mg/dL (8.5-10.1)
[2024-11-03 10:46] LABS: ALBUMIN 3.7 g/dl (3.4-5.0); ANION GAP 9 mmol/L (4-13); BLOOD UREA NITROGEN 15.1 mg/dL (7-18); CO2 23 mmol/L (21-32); GLUCOSE,RANDOM 124 mg/dL (74-106)
[2024-11-03 10:48] LABS: CREATININE 0.8 mg/dL (0.55-1.3); SGOT/AST 23 U/L (15-37); SGPT/ALT 33 U/L (13-61)
[2024-11-03 10:51] LABS: BILIRUBIN,TOTAL 0.2 mg/dL (0.2-1)
[2024-11-03 10:52] LABS: ALK PHOS 96 U/L (45-117)
[2024-11-04] MEDS: chlordiazePOXIDE HCL 25 MG CAPSULE PO SCH (05:26)
[2024-11-05] MEDS ORDERED: chlordiazePOXIDE HCL 10 MG CAPSULE PO PRN
[2024-11-05] MEDS: chlordiazePOXIDE HCL 10 MG CAPSULE PO SCH (05:34)
[2024-11-06] MEDS: chlordiazePOXIDE HCL 10 MG CAPSULE PO SCH (05:33)
[2024-11-06 20:55] VITALS: RESP 16
[2024-11-07] MEDS: chlordiazePOXIDE HCL 10 MG CAPSULE PO ONE (05:16)
[2024-11-07 08:53] VITALS: BP 134/81; PULSE 74; TEMP 96.6
[2024-11-07] MEDS: NALOXONE (NYS OPIOID OVERDOSE PROGRAM) 4 MG/0.1 ML SPRAY NS SCH (09:00)
== END 2024-11-07 10:25 | disposition home or self-care (01) | DRG 773 ==
LOC: YASAS 08:25 → Y3N 09:47
PROVIDERS: ADMIT Allergy & Immunology; ATTEND Surgery
PROC: HZ2ZZZZ Detoxification Services for Substance Abuse Treatment (ICD-10-PCS; principal; 2024-11-02)
DX: F10.230 Alcohol dependence with withdrawal, uncomplicated (principal); F11.20 Opioid dependence, uncomplicated; F17.210 Nicotine dependence, cigarettes, uncomplicated; F19.24 Other psychoactive substance dependence with psychoactive substance-induced mood disorder; F33.1 Major depressive disorder, recurrent, moderate; F41.9 Anxiety disorder, unspecified; F90.9 Attention-deficit hyperactivity disorder, unspecified type; G47.00 Insomnia, unspecified; I10 Essential (primary) hypertension; M54.50 Low back pain, unspecified; G89.29 Other chronic pain
CPT/HCPCS: 36415; 80053; 80305; 80307; 85027; 86780; 93005; 93010